=== PATIENT | female | born 1985 | race Caucasian/White ===

== ENCOUNTER 2017-12-28 06:18 | Day surgery (SDC) | payer OTHER ==
[2017-12-28] MEDS ORDERED: NALOXONE (0.4 MG/ML) INJ IV ×2 (06:30→08:30)
[2017-12-28] MEDS ORDERED: LIDOCAINE 2% (SDV) 5 ML INJ (06:31)
[2017-12-28] MEDS ORDERED: ROCURONIUM 50 MG INJ (06:31)
[2017-12-28] MEDS ORDERED: NEOSTIGMINE 3 MG/3 ML SYRINGE (06:31)
[2017-12-28] MEDS ORDERED: GLYCOPYRROLATE 0.4 MG INJ (06:31)
[2017-12-28] MEDS ORDERED: PROPOFOL 20 ML (06:31)
[2017-12-28] MEDS ORDERED: DEXAMETHASONE 4 MG/ML 1 ML INJ (06:32)
[2017-12-28] MEDS ORDERED: ONDANSETRON 4 MG INJ (06:32)
[2017-12-28] MEDS ORDERED: MIDAZOLAM 1 MG/ML 2 ML INJ (06:32)
[2017-12-28] MEDS ORDERED: FENTAnyl 50 MCG/ML VIAL (06:32)
[2017-12-28] MEDS ORDERED: CEFAZOLIN 1 GM INJ (07:00)
[2017-12-28 07:11] LABS: ADD MAN DIFF? NO
[2017-12-28 07:15] LABS: WHITE BLOOD COUNT 8.6 10^3/ul (4.8-10.8)
[2017-12-28 07:15] LABS: BASOPHILS % 0.2 % (0.0-2.0); EOSINOPHILS # 0.3 10^3/ul (0.0-0.5); EOSINOPHILS % 3.7 % (0.0-7.0); HEMATOCRIT 41.1 % (37.0-47.0); HEMOGLOBIN 14.1 g/dl (12.0-16.0); LYMPHOCYTES # 3.5 10^3/ul (0.8-2.9); LYMPHOCYTES % 40.9 % (15.0-51.0); MEAN CORPUSCULAR HEMOGLOBIN 30.3 pg (29.0-33.0); MEAN CORPUSCULAR HGB CONC 34.3 g/dl (32.0-37.0); MEAN CORPUSCULAR VOLUME 88.4 fl (82.0-101.0); MEAN PLATELET VOLUME 9.6 fl (7.4-10.4); MONOCYTE # 0.7 10^3/ul (0.3-0.9); NEUTROPHIL # 4.1 10^3/ul (1.6-7.5); PLATELET COUNT 341 10^3/UL (140-415); RED BLOOD COUNT 4.65 10^6/ul (4.20-5.40); RED CELL DISTRIBUTION WIDTH 11.7 % (11.5-14.5)
[2017-12-28] MEDS: LACTATED RINGER'S 1,000 ML IV (07:22)
[2017-12-28 07:35] LABS: INR 0.98; PROTIME 13.1 Sec (11.9-14.9)
[2017-12-28 07:36] LABS: PARTIAL THROMBOPLASTIN TIME 30.5 Sec (25.0-35.0)
[2017-12-28 07:38] LABS: ANION GAP 12 (8-16); BLOOD UREA NITROGEN 15 mg/dl (7-20); CALCIUM 9.4 mg/dl (8.4-10.2); CARBON DIOXIDE 27 mmol/L (21-31); CHLORIDE 107 mmol/L (97-110); CREATININE 0.59 mg/dl (0.44-1.00); GLUCOSE 95 mg/dl (70-220); SODIUM 142 mmol/L (135-144)
[2017-12-28] MEDS ORDERED: MIDAZOLAM 1 MG/ML 2 ML INJ IV (08:30)
[2017-12-28] MEDS ORDERED: MEPERIDINE 25 MG INJ IV (08:30)
[2017-12-28] MEDS ORDERED: EPHEDrine SULFATE 50 MG/5 ML SYG IV (08:30)
[2017-12-28] MEDS ORDERED: DIPHENHYDRAMINE 50 MG INJ IV (08:30)
[2017-12-28] MEDS ORDERED: OXYCODONE/ACETAMINOPHEN (5/325) TAB PO ×3 (08:30→09:30)
[2017-12-28] MEDS ORDERED: hydrALAzine 20 MG INJ IV (08:30)
[2017-12-28] MEDS ORDERED: FENTAnyl 50 MCG/ML VIAL IV ×2 (08:30)
[2017-12-28] MEDS ORDERED: LABETALOL HCL 20MG INJ IV (08:30)
[2017-12-28] MEDS ORDERED: morphine (1 MG/ML) 10ML SYRINGE IV ×3 (08:30)
[2017-12-28] MEDS ORDERED: ATROPINE 1 MG/10 ML SYRINGE IV (08:30)
[2017-12-28] MEDS ORDERED: HYDROmorphONE 1 MG/5 ML IV SYRINGE IV ×3 (08:30)
[2017-12-28] MEDS ORDERED: ONDANSETRON 4 MG INJ IV ×2 (08:30→09:30)
[2017-12-28] MEDS: BUPIVACAINE 0.5%/EPI (SDV) 30 ML INJ (08:49)
[2017-12-28] MEDS ORDERED: KETOROLAC 30 MG INJ (09:02)
[2017-12-28] MEDS ORDERED: morphine 2 MG INJ IV (09:30)
[2017-12-28] MEDS ORDERED: IBUPROFEN 600 MG TAB PO (09:30)
[2017-12-28] MEDS ORDERED: LACTATED RINGER'S 1,000 ML IV (10:00)
[2017-12-28] MEDS: ACETAMINOPHEN 325 MG TAB PO (11:02)
== END 2017-12-28 11:30 | disposition home or self-care (01) ==
LOC: SDS 06:18
DX: Z30.2 Encounter for sterilization (principal)
CPT/HCPCS: 58670; 80048; 85025; 85610; 85730; 86850; 86900; 86901